=== PATIENT | male | born 1955 | race Asian ===

== ENCOUNTER → 2020-11-03 07:32 | Outpatient (CLI) | payer MEDICARE, SELFPAY ==
[2020-11-03] MEDS: COVID-19 VACC #1, MRNA(MOD) 100 MCG/0.5 ML VIAL IM (07:40)
== END ==
PROVIDERS: Visit Provider Internal Medicine
DX: Z23 Encounter for immunization (principal)
CPT/HCPCS: 0011A; 91301

== ENCOUNTER → 2020-12-01 07:40 | Outpatient (CLI) | payer MEDICARE, SELFPAY ==
[2020-12-01] MEDS: COVID-19 VACC #2, MRNA(MOD) 100 MCG/0.5 ML VIAL IM (07:48)
== END ==
PROVIDERS: Visit Provider Internal Medicine
DX: Z23 Encounter for immunization (principal)
CPT/HCPCS: 0012A; 91301

== ENCOUNTER 2022-10-23 10:05 | Day surgery (SDC) | payer OTHER, SELFPAY ==
--- NOTE | 2022-10-23 | PATH_ITS ---
[facility] Accession Number: [id number] No. of containers..03 Tissue . 01 Material submitted: . PART A: gastrointestinal site - GASTRIC BIOPSIES PART B: esophagus - ESOPHAGEAL BIOPSIES PART C: colon - DISTAL SIGMOID POLYP . 01 Clinical history: . B: R/O EOE . 01 Diagnosis: A. Stomach, Biopsies: Body-type mucosa with mild chronic gastritis. Negative for Helicobacter by immunohistochemistry. Negative for intestinal metaplasia. Negative for dysplasia and malignancy. . B. Esophagus, Biopsies: Squamous epithelium with no diagnostic abnormality. Intraepithelial eosinophils are not increased. Negative for dysplasia and malignancy. . C. Distal Sigmoid Colon, Polyp, Biopsy: Tubular adenoma. MRV 10/31/2022 1348 Local . 01 Electronically signed: . Alivia Corona MD, Pathologist NPI- [id number] . 01 Gross description: . Part A: GASTRIC BIOPSIES: Received in formalin are 2 fragment(s) of rubin, soft tissue measuring 0.4 x 0.2 x 0.1 cm to 0.3 x 0.3 x 0.1 cm submitted entirely in 1 cassette(s) Part B: ESOPHAGEAL BIOPSIES: Received in formalin are 3 fragment(s) of rubin, soft tissue measuring 0.3 x 0.2 x 0.1 cm to 0.2 x 0.1 x 0.1 cm submitted entirely in 1 cassette(s) Part C: DISTAL SIGMOID POLYP: Received in formalin is 1 fragment(s) of rubin, soft tissue measuring 0.2 x 0.2 x 0.1 cm which is submitted entirely in 1 cassette(s) /CPE 10/24/2022 0754 Local . 01 Microscopic: . A. An immunohistochemical stain was performed to evaluate for Helicobacter organisms and is negative. The control stain showed appropriate reactivity. . * This test was developed and its performance characteristics determined by [facility]. It has not been cleared or approved by the U.S. Food and Drug Administration. The FDA has determined that such clearance or approval is not necessary. This test is used for clinical purposes. It should not be regarded as investigational or for research. . 01 Pathologist provided ICD-10: D12.5 . 01 CPT . 056939, 215079, 475713, B37373 Specimen Comment: A courtesy copy of this report has been sent to [phone] Performed at: 01 [facility] [address] [place] [address], [place], [place] [id number] MD John Blue MD Phone: [phone]
[2022-10-23] MEDS: LACTATED RINGERS 1,000 ML 100 ML IV (10:50)
--- NOTE | 2022-10-23 10:51 | SUR.PREOP ---
[employer] TECHNICIAN USED ON LANGUAGE LINE
--- NOTE | 2022-10-23 10:52 | PM.HP.1 ---
History of Present Illness History of Present Illness Date Patient Seen: 10/23/22 Chief complaint: EGD/Colonoscopy Narrative: New onset worsening reflux and dyspepsia along with 5 year recall for adenomatous colon polyps. Meds Home Medications and Allergies Home Medications Medication Instructions Recorded Confirmed Type amlodipine 5 mg tablet 5 mg PO DAILY 10/23/22 10/23/22 History losartan-hydrochlorothiazide 100 mg PO DAILY 10/23/22 10/23/22 History Exam Narrative Exam Narrative: Oropharynx free of lesions Chest clear to auscultation percussion Cardiac exam reveals no S3 or murmur Assessment & Plan Assessment & Plan narrative: History of worsening GE reflux and dyspepsia need for EGD History of adenomatous colon polyp need for follow-up colonoscopy Risks benefits and alternatives have been explained. Time Spent With Patient Critical Care time: I spent a total of [] minutes of critical care time on this patient's care today; this time is exclusive of procedural time.
[2022-10-23 10:53] VITALS: BP 134/93; PULSE 80; RESP 18; TEMP 36.6; O2SAT 94; BMI 19.1
--- NOTE | 2022-10-23 10:53 | PM.OP.EC ---
Operative Date/Time/Diagnoses Date of procedure: 10/23/22 Pre-op diagnosis: See indication and findings Procedure & Clinicians Study performed: EGD and colonoscopy Indications: Worsening dyspepsia and reflux and routine follow-up for adenomatous colon polyps Surgeon: Adma Kirk Procedure Notes Procedure in detail: After informed consent was obtained the patient was placed in left lateral decubitus position. The video upper scope was placed into the oropharynx and with the patient's help swelled into the esophagus. The esophagus stomach and duodenum were evaluated. On withdrawal retroflexed view the GE junction was performed. The scope was removed. The patient tolerated procedure well. The colonoscope was then substituted and the patient turned. The scope was introduced in the rectum slowly advanced cecum. Preparation was good. On slow withdrawal mucosa was carefully examined. The scope was removed. The patient tolerated procedure well. Blood loss none Complications none Sedation propofol Findings EGD 1. Mid esophagus to GE junction with possible mild furrowing. Biopsies taken to rule out eosinophilic esophagitis 2. Mild gastric erythema particularly antrum biopsies taken to rule out Helicobacter 3. Normal duodenal bulb and sweep Colonoscopy 1. 4 mm polyp in the distal sigmoid Jumbo biopsy removed completely 2. Otherwise negative colonoscopy to cecum Will follow-up on the biopsy report. Patient will not need follow-up colonoscopy for 5 years
[2022-10-23 11:42] VITALS: BP 82/60; PULSE 62; RESP 18; TEMP 36.6; O2SAT 89
[2022-10-23 11:46] VITALS: BP 86/60; PULSE 73; RESP 18; O2SAT 94
[2022-10-23 11:51] VITALS: BP 100/67; PULSE 73; RESP 14; O2SAT 94
[2022-10-23 11:57] VITALS: BP 103/73; PULSE 78; RESP 20; TEMP 36.9; O2SAT 95
[2022-10-23 12:18] VITALS: BP 147/92; PULSE 68; RESP 16; TEMP 36.3; O2SAT 97
== END 2022-10-23 12:40 | disposition home or self-care (01) ==
PROVIDERS: Referring Provider Internal Medicine Gastroenterology; Visit Provider Internal Medicine Gastroenterology
PROC: 0DJ08ZZ Inspection of Upper Intestinal Tract, Via Natural or Artificial Opening Endoscopic (ICD-10-PCS; CPT 43235; principal; 2022-10-23 11:00)
PROC: 0DJD8ZZ Inspection of Lower Intestinal Tract, Via Natural or Artificial Opening Endoscopic (ICD-10-PCS; CPT 45378; 2022-10-23 11:00)
DX: Z12.11 Encounter for screening for malignant neoplasm of colon (principal); K21.9 Gastro-esophageal reflux disease without esophagitis; K29.50 Unspecified chronic gastritis without bleeding; D12.5 Benign neoplasm of sigmoid colon
CPT/HCPCS: 45380; 43239; J2704

== ENCOUNTER 2022-12-26 15:05 | Emergency (ER) | payer OTHER, SELFPAY ==
[2022-12-26 15:05] VITALS: BP 131/79; PULSE 81; RESP 16; TEMP 37; O2SAT 97; BMI 24.7
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
--- NOTE | 2022-12-26 18:05 | DI.RAD.S_ITS ---
PROCEDURE: XR WRIST RT MIN 3V INDICATIONS: R wrist pain TECHNIQUE: 4 views of the wrist were acquired. COMPARISON: None. FINDINGS: Bones: No fractures or dislocations. Osteoarthritic changes along radial aspect of right wrist are seen. No suspicious bony lesions. Scaphoid view: Scaphoid is grossly intact. Soft tissues: No suspicious soft tissue calcifications. IMPRESSION: No wrist fracture or dislocation. Right wrist joint osteoarthritis. Dictated by: Nawaf Chopra M.D. on 12/26/2022 at 17:23 Approved by: Nawaf Chopra M.D. on 12/26/2022 at 17:24
[2022-12-26 19:17] VITALS: BP 142/77; PULSE 64; O2SAT 98
== END 2022-12-26 19:30 | disposition home or self-care (01) ==
PROVIDERS: Emergency Provider Physician Assistant Medical
DX: M54.2 Cervicalgia (principal); M25.531 Pain in right wrist; M54.6 Pain in thoracic spine; S09.90XA Unspecified injury of head, initial encounter; H53.8 Other visual disturbances; V89.2XXA Person injured in unspecified motor-vehicle accident, traffic, initial encounter
CPT/HCPCS: 70450; 72072; 72100; 72125; 73110; 99283; 99284

== ENCOUNTER 2024-08-08 23:11 | Emergency (ER) | payer MEDICARE, OTHER, SELFPAY ==
[2024-08-08 23:14] VITALS: BP 211/107; PULSE 109; RESP 16; TEMP 36.4; O2SAT 99; BMI 25.7
[2024-08-08 23:30] VITALS: BP 191/101; PULSE 101; O2SAT 98
--- NOTE | 2024-08-08 23:55 | DI.RAD.S_ITS ---
PROCEDURE: XR CHEST 1V INDICATIONS: chest pain TECHNIQUE: One view of the chest was acquired. COMPARISON: None. FINDINGS: Surgical changes and devices: None. Lungs and pleura: Lungs are clear. No pleural effusions or pneumothorax. Mediastinum: Mediastinal contours appear normal. Heart size is normal. Bones and chest wall: No suspicious bony lesions. Overlying soft tissues appear unremarkable. IMPRESSION: No acute cardiopulmonary abnormality is seen. Approved by: Chanelle Hong M.D.,Ph.D. on 08/09/2024 at 1:10
--- NOTE | 2024-08-08 23:55 | EKG_ITS ---
[address] [address] Test Date: 2024-08-09 Pat Name: Keegan Garcia Department: Room: Gender: Male Food Server: KATTY : 1955 Requested By: Order Number: [id number] Reading MD: Shaun Shirley Measurements Intervals [place] Rate: 98 P: 42 NC: 210 QRS: -11 QRSD: 78 T: 29 QT: 352 QTc: 449 Interpretive Statements Sinus rhythm with 1st degree AV block Electronically Signed On 08-12-2024 9:38:13 PST by Shaun Shirley
[2024-08-08 23:59] VITALS: BP 194/101; PULSE 98; O2SAT 96
[2024-08-09 00:07] VITALS: BP 183/106; PULSE 99; RESP 21; O2SAT 98
[2024-08-09 00:21] LABS: Add Manual Diff / Slide Review NO; Basophils Absolute Auto 0 /uL (0-100); Basophils Percent Auto 0.6 % (0-2); Eosinophils Absolute Auto 200 /uL (0-450); Eosinophils Percent Auto 2.2 % (2-4); Hematocrit 44.4 % (41-53); Lymphocytes Absolute Auto 1800 /uL (1100-4500); Lymphocytes Percent Auto 21.4 % (25-40); Mean Corpuscular HGB Conc 33.9 % (30-36); Mean Corpuscular Hemoglobin 31.7 PG (26-34); Mean Corpuscular Volume 93.4 fL (80-100); Monocytes Absolute Auto 700 /uL (0-900); Monocytes Percent Auto 8.6 % (3-14); Neutrophils Absolute Auto 5600 /uL (1500-7000); Neutrophils Percent Auto 67.2 % (50-75); Platelet Count 249 X10^3/uL (150-400); Red Blood Cell Count 4.75 X10^6/uL (4.5-5.9); Red Cell Distribution Width 13.3 % (11.6-14.8); White Blood Cell Count 8.3 X10^3/uL (4.5-11.0)
[2024-08-09 00:22] LABS: INR 0.9 (0.9-1.3); Prothrombin Time 10.5 SECONDS (9.4-12.5)
[2024-08-09 00:25] LABS: PTT Partial Thromboplastin Tim 33 SECONDS (25.1-36.5)
[2024-08-09 00:30] VITALS: BP 189/96; PULSE 108; RESP 22; O2SAT 97
[2024-08-09 00:42] LABS: Alanine Aminotransferase 31 IU/L (<50); Albumin 4.6 g/dL (3.5-5.0); Albumin Globulin Ratio 1.4 (1.0-2.8); Alkaline Phosphatase 93 U/L (38-126); Aspartate Aminotransferase 32 IU/L (17-59); BUN Creatinine Ratio 22.1 (6-22); Bilirubin Total 0.4 mg/dL (0.2-1.3); Blood Urea Nitrogen 19 mg/dL (9-20); Carbon Dioxide 26 mmol/L (22-32); Chloride 106 mmol/L (98-107); Creatine Kinase 95 U/L (55-170); Estimated Glomerular Filt Rate > 60 mL/min (>60); Globulin 3.3 g/dL (1.7-4.1); Glucose 125 mg/dL (80-110); HEMOLYSIS < 15 (0-50); Lipase 102 U/L (23-300); Magnesium 1.9 mg/dL (1.6-2.3); Potassium 3.7 mmol/L (3.4-5.1); Sodium 140 mmol/L (137-145); Total Protein 7.9 g/dL (6.3-8.2)
[2024-08-09 00:53] LABS: NT-proBNP (BNP-Adult 18+) < 20 pg/mL (<125); Troponin I < 0.012 ng/mL (0.01-0.034)
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
[2024-08-09 01:02] VITALS: PULSE 113; RESP 28
[2024-08-09 01:30] VITALS: PULSE 107; RESP 39
--- NOTE | 2024-08-09 01:30 | DI.CT.S_ITS ---
PROCEDURE: CT ANGIO HEAD AND NECK INDICATIONS: ? vertigo/feels hot on back of neck TECHNIQUE: After the administration of intravenous contrast, 1 mm thick sections acquired from the aortic arch through the [place] of [place]. 3-dimensional ooblitj-ugbjgbtek-yvimyhwkon (MIP) and/or volume rendering reformats were acquired of the central intracranial vasculature and neck separately. For radiation dose reduction, the following was used: automated exposure control, adjustment of mA and/or kV according to patient size. COMPARISON: None. FINDINGS: Image quality: Diagnostic. BRAIN: Please refer to same day CT of the head. HEAD CT ANGIOGRAPHY: Anterior circulation: Intracranial internal carotid arteries are normal in size and flow. The flow within the paired anterior cerebral arteries is normal and symmetric. The flow within the middle cerebral arteries is normal and symmetric. The anterior communicating artery is seen. No aneurysms are seen. Posterior circulation: Visualized portions of the vertebral arteries demonstrate normal caliber, and join to form a normal appearing basilar artery. Flow within the posterior cerebral arteries is normal and symmetric. No aneurysms are seen. NECK CT ANGIOGRAPHY: Carotid system: The great vessels demonstrate a conventional anatomy as they arise from the aortic arch. The origins of the common carotid arteries appear patent. The common carotid arteries demonstrate normal caliber and courses. The bifurcation regions are both widely patent. The internal carotid arteries demonstrate normal calibers and courses. Posterior circulation: The origins of the vertebral arteries both appear widely patent. The more superior extracranial portions of both vertebral arteries also demonstrate normal courses and calibers. They join to form a normal appearing basilar artery. Soft tissues: Visualized neck soft tissues demonstrate no suspicious abnormalities. Bones: No suspicious bony lesions. Visualized cervical spine appears normally aligned. IMPRESSION: No significant intracranial arterial abnormality is seen. No significant abnormality is seen within the arteries of the neck. Findings are concordant with preliminary interpretation provided by [facility]. Any quantitative measurements of stenosis were performed using NASCET criteria. Dictated by: Greg Perez M.D. on 08/09/2024 at 8:03 Approved by: Greg Perez M.D. on 08/09/2024 at 8:08
--- NOTE | 2024-08-09 01:30 | DI.CT.S_ITS ---
PROCEDURE: CT HEAD/BRAIN WO CON INDICATIONS: ? vertigo/feels hot on back of neck TECHNIQUE: Noncontrast 4.5 mm thick angled axial sections acquired from the foramen magnum to the vertex, with coronal and sagittal reformats. For radiation dose reduction, the following was used: automated exposure control, adjustment of mA and/or kV according to patient size. COMPARISON: None. FINDINGS: Image quality: Diagnostic. CSF spaces: Basal cisterns are patent. No extra-axial fluid collections. The ventricles are symmetric in size and shape. Brain: No intracranial bleeds or masses. There is cerebral volume loss for age, with resultant ventricular and sulcal prominence. There are periventricular and deep white matter chronic small vessel ischemic changes. There is intracranial internal carotid artery atherosclerosis. Skull and face: Calvarium and visualized facial bones appear intact, without suspicious lesions. Sinuses: Partially visualized right maxillary sinus disease. Visualized sinuses and mastoids are otherwise clear. IMPRESSION: No acute intracranial pathology. Findings are concordant with preliminary interpretation provided by [facility]. Dictated by: Greg Perez M.D. on 08/09/2024 at 8:02 Approved by: Greg Perez M.D. on 08/09/2024 at 8:03
[2024-08-09 01:35] VITALS: BP 169/95; PULSE 113; RESP 28; O2SAT 96
[2024-08-09] MEDS: MECLIZINE HCL 12.5 MG TABLET 25 MG PO (01:38)
[2024-08-09] MEDS: SODIUM CHLORIDE 0.9% 1,000 ML 1000 ML IV (01:42)
[2024-08-09 02:01] VITALS: PULSE 104; O2SAT 97
[2024-08-09 02:19] LABS: Influenza A - CEPHEID Flu A NEGATIVE (NEGATIVE); Influenza B - CEPHEID Flu B NEGATIVE (NEGATIVE); Respiratory Syncytial Virus Negative (Negative)
[2024-08-09 02:43] LABS: Troponin I < 0.012 ng/mL (0.01-0.034)
[2024-08-09 02:52] LABS: COVID-19 CEPHEID 4-PLEX PCR Negative (Negative)
== END 2024-08-09 03:29 | disposition home or self-care (01) ==
PROVIDERS: Emergency Provider Emergency Medicine
DX: R42 Dizziness and giddiness (principal); I10 Essential (primary) hypertension; R51.9 Headache, unspecified; R29.898 Other symptoms and signs involving the musculoskeletal system; F17.200 Nicotine dependence, unspecified, uncomplicated
CPT/HCPCS: 0241U; 36415; 70450; 70496; 70498; 71045; 80053; 81003; 82550; 83690; 83735; 83880; 84484; 85025; 85610; 85730; 93005; 96360; 99284; 99285; Q9967

== ENCOUNTER 2024-10-13 04:20 | Emergency (ER) | payer OTHER, MEDICAID, SELFPAY ==
[2024-10-13 04:37] VITALS: BP 171/98; PULSE 113; RESP 17; TEMP 37.1; O2SAT 97
--- NOTE | 2024-10-13 04:37 | EKG_ITS ---
[address] [address] Test Date: 2024-10-13 Pat Name: Keegan Garcia Department: Room: Gender: Male Software Technician: LEONID : [id number] Requested By: Order Number: [id number] Reading MD: Shaun Shirley Measurements Intervals [place] Rate: 115 P: 40 SD: 186 QRS: 3 QRSD: 84 T: 40 QT: 318 QTc: 439 Interpretive Statements Sinus tachycardia Cannot rule out Inferior infarct , age undetermined Electronically Signed On 10-13-2024 13:47:31 PST by Shaun Shirley
--- NOTE | 2024-10-13 04:37 | DI.RAD.S_ITS ---
PROCEDURE: XR CHEST 1V INDICATIONS: chest pain TECHNIQUE: One view of the chest was acquired. COMPARISON: [facility], CR, XR CHEST 1V, 08/09/2024, 0:06. FINDINGS: Surgical changes and devices: None. Lungs and pleura: Lungs are clear. No pleural effusions or pneumothorax. Mediastinum: Mediastinal contours appear normal. Heart size is normal. Bones and chest wall: No suspicious bony lesions. Overlying soft tissues appear unremarkable. IMPRESSION: No acute pulmonary process. Dictated by: Sumaya Elizabeth M.D. on 10/13/2024 at 7:31 Approved by: Sumaya Elizabeth M.D. on 10/13/2024 at 7:32
[2024-10-13 04:51] LABS: Add Manual Diff / Slide Review NO; Basophils Absolute Auto 100 /uL (0-100); Basophils Percent Auto 0.9 % (0-2); Eosinophils Absolute Auto 200 /uL (0-450); Eosinophils Percent Auto 2.7 % (2-4); Hematocrit 44.8 % (41-53); Hemoglobin 15.2 g/dL (13.5-17.5); Lymphocytes Absolute Auto 2500 /uL (1100-4500); Mean Corpuscular HGB Conc 33.9 % (30-36); Mean Corpuscular Hemoglobin 31.7 PG (26-34); Mean Corpuscular Volume 93.4 fL (80-100); Monocytes Absolute Auto 700 /uL (0-900); Monocytes Percent Auto 9.4 % (3-14); Neutrophils Absolute Auto 3500 /uL (1500-7000); Platelet Count 245 X10^3/uL (150-400); Red Blood Cell Count 4.79 X10^6/uL (4.5-5.9); Red Cell Distribution Width 13.8 % (11.6-14.8)
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
[2024-10-13] MEDS: KETOROLAC 30 MG/ML VIAL 15 MG IV (04:55)
[2024-10-13 05:09] LABS: D Dimer 287 ng/ml (<500)
[2024-10-13 05:11] LABS: Alanine Aminotransferase 29 IU/L (<50); Albumin 4.4 g/dL (3.5-5.0); Albumin Globulin Ratio 1.3 (1.0-2.8); Alkaline Phosphatase 86 U/L (38-126); Aspartate Aminotransferase 35 IU/L (17-59); BUN Creatinine Ratio 15.6 (6-22); Bilirubin Total 0.7 mg/dL (0.2-1.3); Blood Urea Nitrogen 14 mg/dL (9-20); Calcium 9.1 mg/dL (8.4-10.2); Carbon Dioxide 26 mmol/L (22-32); Chloride 105 mmol/L (98-107); Creatine Kinase 58 U/L (55-170); Estimated Glomerular Filt Rate > 60 mL/min (>60); Globulin 3.4 g/dL (1.7-4.1); Glucose 132 mg/dL (80-110); HEMOLYSIS 39 (0-50); Lactate (Lactic Acid) 1.4 mmol/L (0.7-2.1); Lipase 92 U/L (23-300); Potassium 3.6 mmol/L (3.4-5.1); Sodium 139 mmol/L (137-145); Total Protein 7.8 g/dL (6.3-8.2)
[2024-10-13 05:22] LABS: Troponin I < 0.012 ng/mL (0.01-0.034)
[2024-10-13 05:30] VITALS: BP 153/95; PULSE 95; RESP 19; O2SAT 93
[2024-10-13 05:48] LABS: Influenza A - CEPHEID Flu A NEGATIVE (NEGATIVE); Influenza B - CEPHEID Flu B NEGATIVE (NEGATIVE); Respiratory Syncytial Virus Negative (Negative)
[2024-10-13 05:56] LABS: COVID-19 CEPHEID 4-PLEX PCR Negative (Negative)
[2024-10-13 06:00] VITALS: BP 131/81; PULSE 91; RESP 15; O2SAT 94
[2024-10-13 06:30] VITALS: BP 163/94; PULSE 96; RESP 17; O2SAT 94
[2024-10-13] MEDS: SODIUM CHLORIDE 0.9% 1,000 ML 1000 ML IV (06:39)
[2024-10-13 07:00] VITALS: BP 161/92; PULSE 99; O2SAT 97
[2024-10-13 07:55] VITALS: BP 151/78; PULSE 78; RESP 16
== END 2024-10-13 07:57 | disposition home or self-care (01) ==
PROVIDERS: Emergency Medicine; Emergency Provider Student in an Organized Health Care Education/Training Program
DX: I10 Essential (primary) hypertension (principal); R42 Dizziness and giddiness; J02.9 Acute pharyngitis, unspecified; R00.0 Tachycardia, unspecified
CPT/HCPCS: 0241U; 36415; 71045; 80053; 82550; 83605; 83690; 84484; 85025; 85379; 93005; 96361; 96374; 99284; J1885